=== PATIENT | male | born 1935 | race Caucasian/White ===

== ENCOUNTER 2018-02-12 05:08 | Emergency (ER) | payer OTHER, MEDICARE ==
[~2018-02-12] VITALS: Ht 177.8 cm; Wt 84.5 kg
[2018-02-12] MEDS ORDERED: normal saline 1000ML IV soln IVB ONE ×2 (05:55→06:20)
[2018-02-12] MEDS ORDERED: morphine 4 MG/ML inj SYRINge IV ONE (05:55)
[2018-02-12] MEDS ORDERED: ondansetron/PF 4mg/2ml inj IV ONE (05:55)
[2018-02-12 06:09] LABS: BASOPHILS % (AUTO) 0 % (0-1); EOSINOPHILS % (AUTO) 0 % (0-6); HEMATOCRIT 53.3 % (42.0-52.0); LYMPHOCYTES # (AUTO) 1.1 X10'3 (1.1-4.8); LYMPHOCYTES % (AUTO) 8.7 % (21-51); MEAN CORPUSCULAR HEMOGLOBIN 33.9 PG (27.0-31.0); MEAN CORPUSCULAR HGB CONC 34.1 % (33.0-36.5); MEAN CORPUSCULAR VOLUME 99.3 FL (78-98); MEAN PLATELET VOLUME 9.4 FL (7.4-10.4); MONOCYTES # (AUTO) 0.3 X10'3 (0-0.9); MONOCYTES % (AUTO) 2.2 % (2-12); NEUTROPHILS % (AUTO) 89.1 % (42-75); PLATELET COUNT 137 X10'3 (140-440); RED BLOOD COUNT 5.36 X10'6 (4.70-6.10); RED CELL DISTRIBUTION WIDTH 13.7 % (11.5-14.5); WHITE BLOOD COUNT 12.4 X10'3 (4.5-11.0)
[2018-02-12] MEDS ORDERED: diatrozoate meglu/diatrozoate sod (37% iodine) 120ML oral solution PO ONE (06:10)
[2018-02-12 06:12] LABS: HEMOGLOBIN 18.2 g/dl (14.0-17.9)
[2018-02-12] MEDS ORDERED: meperidine/PF 50mg/ml syringe IV ONE (06:20)
[2018-02-12] MEDS ORDERED: tamsulosin 0.4mg capsule PO ONE (06:20)
[2018-02-12] MEDS ORDERED: ketorolac tromethamine 15mg/ml inj. IV ONE (06:20)
[2018-02-12] MEDS ORDERED: diatr meglu/diatrizoate 30ml oral sol.-(3 dose) bottle PO SCH (06:25)
[2018-02-12 06:32] LABS: PROTHROMBIN TIME 10.6 SECONDS (9.0-12.0)
[2018-02-12 06:40] LABS: CLARITY,URINE CLEAR (Clear); COLOR,URINE YELLOW (Yellow); GLUCOSE, URINE 100 mg/dl (Neg); KETONES,URINE NEGATIVE (Neg); LEUKOCYTE ESTERASE ,URINE NEGATIVE (Neg); NITRITES, URINE NEGATIVE (Neg); OCCULT BLOOD,URINE NEGATIVE (Neg); PROTEIN,URINE NEGATIVE (Neg); UROBILINOGEN,URINE 0.2 E.U/dL (0.2-1.0)
[2018-02-12 06:48] LABS: UA COLLECTION TYPE CLN CATCH MIDSTREAM
[2018-02-12] MEDS ORDERED: diatrozoate meglu/diatrozoate sod (37% iodine) 120ML oral solution ONE (06:48)
[2018-02-12] MEDS ORDERED: iohexol 300mg/ml 100ml inj. ONE (07:52)
[2018-02-12 08:18] LABS: ALANINE AMINOTRANSFERASE 21 U/L (12-78); ALBUMIN 3.5 G/DL (3.4-5.0); ALBUMIN/GLOBULIN RATIO 1.2 (1.1-1.5); ALKALINE PHOSPHATASE 79 IU/L (46-116); ANION GAP 8 (8-16); ASPARTATE AMINO TRANSFERASE 26 U/L (10-37); BILIRUBIN,TOTAL 1.9 MG/DL (0.1-1.0); BLOOD UREA NITROGEN 18 MG/DL (7-18); BUN/CREATININE RATIO 19.6 (5.4-32.0); CALCIUM 8.6 MG/DL (8.5-10.1); CHLORIDE 108 MMOL/L (99-107); CREATININE 0.92 MG/DL (0.60-1.10); GLUCOSE 154 MG/DL (70-104); LIPASE 100 U/L (73-393); MAGNESIUM 1.8 MG/DL (1.5-2.4); POTASSIUM 4.2 MMOL/L (3.5-5.1); SODIUM 143 MMOL/L (135-145); TOTAL CARBON DIOXIDE 27.5 MMOL/L (24-32); TOTAL PROTEIN 6.4 G/DL (6.4-8.2); eGFR 79 ML/MIN
[2018-02-12 10:31] VITALS: BP 181/107
[2018-02-12] MEDS ORDERED: NAPR-56 PO (11:02)
== END 2018-02-12 11:20 | disposition home or self-care (01) ==
LOC: ER 05:09
DX: N23 Unspecified renal colic (principal); K80.20 Calculus of gallbladder without cholecystitis without obstruction; K57.30 Diverticulosis of large intestine without perforation or abscess without bleeding; I10 Essential (primary) hypertension
CPT/HCPCS: 36415; 74177; 76700; 80053; 81003; 83690; 83735; 85025; 85610; 93005; 96361; 96374; 96375; 99285; J1885; J2175; J2270; J2405; J7030; Q9963; Q9967